=== PATIENT | male | born 1980 | race Caucasian/White ===

== ENCOUNTER 2023-10-04 19:06 | Emergency (ER) | payer SELFPAY ==
[~2023-10-04] VITALS: Ht 170.2 cm; Wt 75.0 kg
[2023-10-04 19:13] VITALS: BP 129/66; PULSE 57; RESP 16; TEMP 98.1; O2SAT 97
[2023-10-04] MEDS ORDERED: TETANUS, DIPHTHERIA, PERTUSSIS VAC/PF 0.5ML (>10YR OLD) IM ONE (20:15)
[2023-10-04 20:37] LABS: BASOPHILS % 0.8 % (0.0-2.0); EOSINOPHILS % 2.8 % (0.0-5.0); HEMATOCRIT. 37.6 % (42.0-52.0); HEMOGLOBIN. 12.8 g/dL (14.0-18.0); LYMPHOCYTES % 36.3 % (20.0-50.0); MEAN CORPUSCULAR HEMOGLOBIN 28.8 pg (28.0-32.0); MEAN CORPUSCULAR HGB CONC 34.1 g/dL (31.0-37.0); MEAN CORPUSCULAR VOLUME 84.4 fL (80.0-94.0); MEAN PLATELET VOLUME 8.2 fl (7.4-10.4); MONOCYTES % 11.5 % (2.0-8.0); NEUTROPHILS % 48.6 % (40.0-76.0); PLATELET 219 x1000/uL (130-400); RED BLOOD CELL COUNT 4.45 mill/uL (4.7-6.1); WHITE BLOOD COUNT 3.4 x1000/uL (4.5-11.0)
[2023-10-04 20:50] LABS: ALANINE AMINOTRANSFERASE 21 IU/L (10-49); ALBUMIN 4.5 g/dL (3.2-4.8); ASPARTATE AMINOTRANSFERASE 19 IU/L (<34); BILIRUBIN TOTAL 0.7 mg/dL (0.1-1.0); CALCIUM 9.1 mg/dL (8.7-10.4); CARBON DIOXIDE 29 mEq/L (21-32); CHLORIDE 107 mEq/L (98-107); CREATININE 0.8 mg/dL (0.6-1.3); GLUCOSE 127 mg/dL (70-105); POTASSIUM 3.5 mEq/L (3.5-5.1); PROTEIN TOTAL 7.3 g/dL (6.0-8.3); SODIUM 140 mEq/L (136-145); UREA NITROGEN BLOOD 10 mg/dL (9-23)
[2023-10-04] MEDS ORDERED: AMOX-494 MT (22:57)
== END 2023-10-04 23:22 | disposition home or self-care (01) ==
LOC: ER 19:06
DX: S61.412A Laceration without foreign body of left hand, initial encounter (principal); S09.90XA Unspecified injury of head, initial encounter; K04.7 Periapical abscess without sinus; X58.XXXA Exposure to other specified factors, initial encounter; Y93.89 Activity, other specified; Y92.89 Other specified places as the place of occurrence of the external cause; Y99.8 Other external cause status
CPT/HCPCS: 80053; 85025; 36415; 73130; 70450; 71260; 72125; 74177; 90715; 90471; 99285; Z7610

== ENCOUNTER 2023-10-10 12:49 | Emergency (ER) | payer SELFPAY ==
[~2023-10-10] VITALS: Ht 182.9 cm; Wt 75.0 kg
[~2023-10-10 12:49] MED LIST: AMOX-494 MT
[2023-10-10 13:00] VITALS: BP 117/59; PULSE 64; RESP 16; TEMP 98.3; O2SAT 99
== END 2023-10-10 16:09 | disposition left against medical advice (07) ==
LOC: ER 13:05
DX: S61.412D Laceration without foreign body of left hand, subsequent encounter (principal); X58.XXXD Exposure to other specified factors, subsequent encounter; Z53.21 Procedure and treatment not carried out due to patient leaving prior to being seen by health care provider
CPT/HCPCS: 99281